=== PATIENT | male | born 1955 | race Caucasian/White ===

== ENCOUNTER 2019-07-21 05:43 | Emergency (ER) | payer OTHER, SELFPAY ==
[2019-07-21 05:48] VITALS: BP 159/81; PULSE 88; RESP 20; TEMP 36.4; O2SAT 96
--- NOTE | 2019-07-21 05:55 | W.ED.GENAD ---
Discharge Plan Disposition Patient Disposition: HOME Condition: Good Discharge Details Chief Complaint: FlankPain Clinical Impression: Left lumbar pain Primary Care Provider: Shailesh Lincoln ED Provider: Holden Salazar [place] Meds and New Rx's Prescriptions: New lidocaine 5 % adhesive patch,medicated 1 patch TP DAILY Qty: 15 RF: 0 Continued All Day Allergy (cetirizine) 10 mg capsule 10 mg PO DAILY RF: 0 aspirin 325 MG tablet 325 mg PO DAILY RF: 0 sildenafil [Viagra] 100 MG tablet 0.5 - 1 tab PO As directed Qty: 2 RF: 6 omeprazole 20 MG capsule,delayed release(DR/EC) 20 mg PO DAILY Qty: 90 RF: 4 lisinopril 10 mg Tablet PO DAILY RF: 0 Discharge Instructions Additional Instructions: Laboratory studies and CT scan do not show anything acutely wrong. Pain is likely muscular in nature. You may use ibuprofen or acetaminophen as needed. Heat and gentle stretching will likely help. Lidocaine patches as directed. Follow-up with primary care next week if continued problems. Return to ED if increased pain, bladder or bowel dysfunction, numbness, weakness, fever, abdomen pain. Stand Alone Forms: Work Release Referrals: [facility] [Outside] Shailesh Lincoln MD [Primary Care Provider] - Medical Decision Making Patient presenting with worsening of left mid lumbar back pain. Doubt that this is kidney stone related though he reports history of same. Suspect more muscular in nature. Doubt abdominal process but very large abdomen and difficult to evaluate. There is no midline back pain no neurologic symptomatology. IV had been established by nursing. CBC and BMP sent. Urinalysis obtained. Stone study ordered. Toradol given for pain. Toradol did help with the patient's pain. Urine is negative. CBC and BMP are fine. CT scan does reveal bilateral kidney stones with in the kidney itself but no evidence of hydronephrosis or stones within the ureters. He has some diverticulosis but no evidence of diverticulitis. Has degenerative change of the spine. At this point I suspect the pain is muscular in nature. He may use ibuprofen or acetaminophen as needed. Will apply Lidoderm patch now and give prescription for same. Refer to primary care for follow-up next week. Return to ED for worsening pain, bladder or bowel dysfunction, numbness, weakness, fever, abdominal pain. Lab Data Lab results reviewed: Yes I reviewed the patient's lab results. HPI General Mode of arrival: ambulatory. Date/Time Provider Initiated Documentation: 07/21/19 05:52. Limitations to Documentation: no limitations. Information obtained by: patient and RN notes reviewed. HPI Narrative: Patient presents to ED with complaint of left flank and back pain that he has had for months but much worse this morning. It has been present for some time but not severe. This morning he rates it an 8 out of 10. It does not radiate anywhere. It does get worse to some degree with movement but not when he tries to push on the area. He does not have abdominal pain, nausea, vomiting or diarrhea. He has no urinary symptoms. He has no chest pain or shortness of breath. There is no radiation of pain down his leg, numbness, weakness, bladder or bowel dysfunction or problems. Related Data Home Medications Medication Instructions Recorded Confirmed aspirin 325 mg PO DAILY tab-cap 10/18/12 07/21/19 sildenafil [Viagra] 0.5 - 1 tab PO As directed #2 09/14/15 07/21/19 tab-cap omeprazole 20 mg PO DAILY #90 tab-cap 10/01/17 07/21/19 cetirizine 10 mg capsule 10 mg PO DAILY cap 03/29/19 07/21/19 lidocaine 1 patch TP DAILY #15 each 07/21/19 lisinopril mg PO DAILY 07/21/19 Previous Rx's Medication Instructions Recorded omeprazole 20 mg PO DAILY #90 tab-cap 10/01/17 lidocaine 1 patch TP DAILY #15 each 07/21/19 Allergies Allergy/AdvReac Type Severity Reaction Status Date / Time No Known Allergies Allergy Unverified 07/21/19 05:50 General Stated Complaint: FlankPain HUNG: 3 Review of Systems Narrative: As documented in HPI otherwise negative as below. Const: no fever, chills, weakness Resp: no cough, SOB, pleuritic pain CV: no CP, diaphoresis, edema, syncope GI: no abdominal pain, nausea, vomiting, diarrhea Neuro: no headache, numbness, focal weakness, confusion [facility] Medical History Asthma (Chronic) Coronary artery disease (Chronic) GERD (gastroesophageal reflux disease) (Chronic) Hypertension (Chronic) Obesity (Chronic 09/29/07) Surgical History S/P cholecystectomy (Chronic) S/P hernia repair (Chronic) Family History Mother Neoplasm STOMACH Father Diabetes Essential hypertension Sister No problems noted. Sister No problems noted. Brother No problems noted. Grandfather No problems noted. Grandfather No problems noted. Grandmother No problems noted. Grandmother No problems noted. Son No problems noted. Social History Smoking/Tobacco Use Status: Former Tobacco Use Quit Date: 08/03/74 Alcohol Intake: current Alcohol Intake frequency: a few times a month Drug use: Never Substance use type: does not use Do you feel safe at home: Yes Do you feel safe in your relationship?: Yes Exam Narrative Exam Narrative: Vitals: Afebrile. Elevated blood pressure but otherwise normal vitals and room air pulse ox. Const: Morbidly obese male in NAD. HEENT: NC/AT. Normal facial exam. Eyes: Normal conjunctiva and sclera. Neck: Supple. Trachea midline. Lungs: Normal respiratory effort. GI: Large soft belly without tenderness. Back: No CVAT. No pain with palpation. Some pain in the left mid lumbar area with twisting/moving. No midline pain. Neuro: A+O x 3. Normal speech and mentation. Normal gait. No gross motor or sensory deficits noted. Skin: Warm and dry without rash. Course Vital Signs Vital signs: Vital Signs Temperature 97.6 F 07/21/19 05:48 Pulse 88 07/21/19 05:48 Respiratory Rate 20 07/21/19 05:48 Blood Pressure 159/81 H 07/21/19 05:48 Pulse Oximetry 96 07/21/19 05:48 Temperature 97.6 F 07/21/19 05:48 Pulse 88 07/21/19 05:48 Respiratory Rate 20 07/21/19 05:48 Respiratory Effort Non-Labored 07/21/19 05:52 Blood Pressure 159/81 H 07/21/19 05:48 Blood Pressure Position Sitting 07/21/19 05:48 Pulse Oximetry 96 07/21/19 05:48 Oxygen Delivery Method Room Air 07/21/19 05:48 Oxygen Flow Rate 0 07/21/19 05:48 Pain Level 7 07/21/19 05:52
[2019-07-21 06:06] LABS: Bilirubin Negative (Negative); Blood Negative (Negative); Clarity Clear (Clear); Glucose Negative (Negative); Ketones Negative (Negative); Leukocyte Esterase Negative (Negative); Nitrite Negative (Negative); Urobilinogen 0.2 EU/dL (Up TO 0.2)
[2019-07-21] MEDS: Ketorolac 30 MG/ML VIAL 15 MG IVP (06:10)
[2019-07-21 06:20] LABS: Abs Immature Grans 0.02 k/cumm (0.0-0.09); Absolute Basophil Count 0.04 k/cumm (0.0-0.2); Absolute Eosinophil Count 0.29 k/cumm (0.0-0.7); Absolute Lymphocyte Count 1.25 k/cumm (1.2-3.4); Absolute Monocyte Count 0.94 k/cumm (0.11-0.7); Absolute Neutrophil Count 4.47 k/cumm (1.2-6.7); Basophils % 0.6; Eosinophils % 4.1; HCT 47.2 % (40.0-50.0); HGB 15.3 g/dL (13.5-17.5); Immature Grans % 0.3; Lymphocytes % 17.8; Mean Corp. HGB Concentration 32.4 g/dL (32.0-36.0); Mean Corpuscular Hemoglobin 26.8 pg (27.0-33.0); Mean Corpuscular Volume 82.7 fL (80-95); Mean Platelet Volume 11.6 fL (8.0-11.0); Monocytes % 13.4; Neutrophils % 63.8; Platelet Count 234 x1000/uL (130-400); RBC 5.71 m/cumm (4.50-6.00); RBC Distribution Width 16.4 % (11.8-14.1); White Blood Cell Count 7.01 k/cumm (4.4-10.8)
[2019-07-21 06:27] LABS: Anion Gap 9.2 mmol/L (3-11); BUN 21 mg/dL (7-18); CO2 24.8 mmol/L (21.0-32.0); Calcium 8.4 mg/dL (8.5-10.1); Chloride 105 mmol/L (98-107); Glucose 140 mg/dL (74-106); Potassium 4.2 mmol/L (3.5-5.1); Sodium 139 mmol/L (136-145)
--- NOTE | 2019-07-21 06:28 | DI.CT_ITS ---
EXAM: CT RENAL COLIC WO CLINICAL HISTORY: left flank/back pain TECHNIQUE: Noncontrast CT examination of the abdomen and pelvis was performed. COMPARISON: RENAL COLIC WO CONTRAST from 12/22/2010 FINDINGS: Images obtained through the lung bases are unremarkable. Visualized portions of liver and spleen a re unremarkable. Prior cholecystectomy noted, no biliary dilatation. Unremarkable noncontrast appea lita of the pancreas. Abdominal aorta is of normal diameter. No abdominal or pelvic adenopathy. Umbilical hernia noted with mildly increased attenuation in adjacent intraperitoneal fat, no change f rom CT of 2010. No focal bowel pathology. Normal appearance of the appendix. No diverticulitis. Adrenals appear normal bilaterally. There are multiple tiny bilateral renal calculi. No evidence of urinary tract obstruction, no ureter al calcification. Urinary bladder is essentially empty. IMPRESSION: Bilateral nephrolithiasis without evidence of urinary tract obstruction. No ureteral calculi identif ied.
[2019-07-21] MEDS: Normal Saline Flush 10 ML SYR IVP (06:51)
--- NOTE | 2019-07-21 07:43 | DI.VRAD_ITS ---
PROCEDURE INFORMATION: Exam: CT Abdomen And Pelvis Without Contrast Exam date and time: 07/21/2019 6:22 AM Age: 63 years old Clinical indication: Abdominal pain; Flank; Left; Prior surgery; Surgery date: 6+ months; Surgery type: Inguinal hernia repair TECHNIQUE: Imaging protocol: Computed tomography of the abdomen and pelvis without contrast. Radiation optimization: All CT scans at this facility use at least one of these dose optimization techniques: automated exposure control; mA and/or kV adjustment per patient size (includes targeted exams where dose is matched to clinical indication); or iterative reconstruction. COMPARISON: CR LEFT HIP COMPLETE \T\ AP PELVIS 08/17/2015 6:43 AM FINDINGS: Lungs: Lung bases are clear. Liver: No enlargement or mass. Gallbladder and bile ducts: Surgical clips from prior cholecystectomy. Pancreas: No enlargement. No mass. No ductal dilatation. Spleen: Normal size. No mass. Adrenals: No mass. No enlargement. No hemorrhage. Kidneys and ureters: Bilateral nephrolithiasis. No hydronephrosis. No hydroureter or ureterolithiasis. Stomach and bowel: Moderate diverticulosis distal descending and sigmoid colon without acute diverticulitis. Mild constipation. No colitis. Small bowel unremarkable without mechanical obstruction. No wall thickening or pneumatosis. Appendix: Not confidently identified. No right lower quadrant inflammation. Intraperitoneal space: Unremarkable. No free air. No significant fluid collection. Vasculature: Clip aorta normal Aortic atherosclerotic calcification. Lymph nodes: No significant lymphadenopathy demonstrated. Bladder: Decompressed without wall thickening, mass or calculus. Reproductive: Prostate is enlarged. Calcification within the prostate. Bones/joints: Moderate degenerative changes noted throughout the spine. Grade 1 spondylolisthesis L5 on S1 secondary to degenerative facet disease with spondylosis on the left. Lumbarized first sacral segment with rudimentary S1-2 disc space. No acute fracture. Soft tissues: Small fat containing elena-umbilical hernia with minimal adjacent infiltration. No associated bowel. No obstruction or incarceration. IMPRESSION: 1. No acute findings within the abdomen or pelvis. 2. Nonobstructive bilateral nephrolithiasis. No hydroureteronephrosis or ureterolithiasis on either side. 3. Moderate diverticulosis without acute diverticulitis. Mild constipation. No colitis. 4. Additional nonemergent findings as described above. Dictated and Authenticated by: Evangelista Hammond MD. Ordering:SANTOS Hatch MD
[2019-07-21] MEDS: Lidocaine 5% Patch 1 PATCH TP (07:52)
[2019-07-21 07:54] VITALS: BP 127/76; PULSE 85; RESP 15; TEMP 36.8; O2SAT 94
[2019-07-21 07:59] VITALS: BP 127/76; PULSE 85; RESP 15; TEMP 36.8; O2SAT 94
== END 2019-07-21 07:58 | disposition home or self-care (01) ==
PROVIDERS: Emergency Provider Emergency Medicine; PCP Family Medicine
DX: M54.5 Low back pain (principal); N20.0 Calculus of kidney; I10 Essential (primary) hypertension; Z87.442 Personal history of urinary calculi
CPT/HCPCS: 36415; 80048; 96374; 99284; 74176; 81003; 85025; J1885

== ENCOUNTER 2023-06-19 03:30 | Outpatient (CLI) | payer MEDICARE, SELFPAY ==
[2023-06-19] MEDS: Inhaler, Assist Device 1 EACH MC (09:16)
[2023-06-19] MEDS: Levalbuterol HFA 15 GM INH 4 PUFF IH (09:16)
--- NOTE | 2023-06-23 07:36 | W.PFT ---
Date of service: 06/19/23 Time of Service: 07:59 Pulmonary Function Test Result Indications: Asthma Interpretation Spirometry: There is no airflow limitation. There is no significant bronchodilator response. There is a low FVC. Lung Volumes: Normal lung volumes Diffusion Capacity: Normal diffusion Airway Pressure: Normal airways resistance Impression Normal pulmonary function testing. The low FVC is likely pseudo-restriction due to obesity. Clinical Correlation therefore is recommended.
== END 2023-06-19 03:31 | disposition home or self-care (01) ==
LOC: RT 03:32
PROVIDERS: PCP Family Medicine; Visit Provider Family Medicine
DX: J45.909 Unspecified asthma, uncomplicated (principal); Z77.29 Contact with and (suspected) exposure to other hazardous substances
CPT/HCPCS: 94060; 94726; 94729

== ENCOUNTER 2023-07-02 01:58 | Outpatient (CLI) | payer MEDICARE, SELFPAY ==
[2023-07-02 12:40] LABS: ALT 29 U/L (16-63); AST 22 U/L (15-37); Albumin 3.1 g/dL (3.4-5.0); Alkaline Phosphatase 112 U/L (46-116); Anion Gap 8.9 mmol/L (3-11); BUN 11 mg/dL (7-18); Bilirubin, Total 0.3 mg/dL (0.2-1.0); CO2 26.1 mmol/L (21.0-32.0); CREATININE 1.2 mg/dL (0.70-1.30); Calcium 8.6 mg/dL (8.5-10.1); Calculated LDL 57 mg/dL (<100); Chloride 105 mmol/L (98-107); Cholesterol 118 mg/dL (<200); Estimated GFR 65.46 (mL/min/1.73m2); Glucose 148 mg/dL (74-106); HDL Cholesterol 48 mg/dL (40-60); Potassium 4.1 mmol/L (3.5-5.1); Sodium 140 mmol/L (136-145); Total Protein 7.6 g/dL (6.4-8.2); Triglyceride 65 mg/dL (<150)
[2023-07-02 13:01] LABS: COMMENT (LAB VIEW ONLY) 199.93 mg/dL; Microalb ug/mg Crea 70.4 ug/mg Cr
[2023-07-02 17:27] LABS: PSA, Screening 0.8 ng/mL (<=4.5)
== END 2023-07-02 01:59 | disposition home or self-care (01) ==
LOC: LOS 01:58
PROVIDERS: PCP Family Medicine; Visit Provider Family Medicine
DX: E11.9 Type 2 diabetes mellitus without complications (principal); Z12.5 Encounter for screening for malignant neoplasm of prostate
CPT/HCPCS: 36415; 80053; 80061; 84153; 82043; 82570

== ENCOUNTER 2024-09-22 08:16 | Emergency (ER) | payer MEDICARE, SELFPAY ==
[2024-09-22] VITALS (53 sets, daily range): BP systolic 115–164; BP diastolic 51–75; PULSE 63–89; RESP 10–24; TEMP 36.4; O2SAT 88–96
--- NOTE | 2024-09-22 08:15 | RT.EKG_ITS ---
APPROVED REPORT Exam: Resting ECG Reason for Exam: chest pain Patient Location: E HR:77 bpm ECG Measurements Heart Rate 77 AXIS WV 192 P 62 QRSd 95 QRS -5 QT 402 T 29 QTc 456 Conclusion Sinus rhythm. 77 NORMAL AXIS NO STEMI
--- NOTE | 2024-09-22 08:30 | DI.RAD_ITS ---
Exam(s) XR CHEST 2V PA LATERAL EXAM: XR CHEST 2V PA LATERAL CLINICAL HISTORY: Chest pain TECHNIQUE: 2D digital imaging was performed of the chest. Two images were obtained. PA and lateral views were obtained. COMPARISON: No exams were available for comparison FINDINGS: MEDIASTINUM: Normal. HEART: Normal. PULMONARY VASCULATURE: Normal. LUNGS: Clear. PLEURAL SPACE: No pleural effusion or pneumothorax. BONE:Within normal limits for the patient's age. OTHER FINDINGS:Normal. IMPRESSION: No acute pulmonary findings. DATA REPOSITORY: RADIATION DOSE DELIVERED:
--- NOTE | 2024-09-22 08:47 | ED.GENADUL_ITS ---
Discharge Plan Disposition Patient Disposition: Home Condition: Stable Discharge Details Clinical Impression: Chest pain Primary Care Provider: Ceci Sorensen ED Provider: Mamie Saleh Home Meds and New Rx's Prescriptions: No Action lisinopril 20 mg tablet 20 mg PO DAILY Rx Instructions: [facility] rosuvastatin 10 mg tablet 10 mg PO DAILY Rx Instructions: [facility] cyclobenzaprine 10 mg tablet 10 mg PO HS PRN (Reason: muscle spasm) potassium citrate 10 mEq (1,080 mg) tablet extended release 10 meq PO TID All Day Allergy (cetirizine) 10 mg capsule 10 mg PO DAILY metoprolol tartrate 25 mg tablet 25 mg PO DAILY fluticasone furoate 50 mcg/actuation blister with device inhalation BID Patient Comments: [facility] carboxymethylcellulose sodium [Refresh Tears] 0.5 % drops 1 drp ophthalmic (eye) 4-6XD PRN dofetilide 500 mcg capsule 500 mcg PO BID albuterol sulfate 90 mcg/actuation HFA aerosol inhaler 2 puff inhalation QID PRN Eliquis 5 mg tablet 5 mg PO BID sildenafil [Viagra] 100 MG tablet 0.5 - 1 tab PO As directed Qty: 2 Rx Instructions: Take 2 hours before intercourse omeprazole 20 MG capsule,delayed release(DR/EC) 20 mg PO DAILY Qty: 90 4RF lidocaine 5 % adhesive patch,medicated 1 patch TP DAILY Qty: 15 0RF Rx Instructions: leave on most painful area for up to 12 hrs Discharge Instructions Instructions: Chest Pain, Adult ED Additional Instructions: Emergency department workup today does not reveal an acute etiology of your ches t pain. Blood work was very reassuring. Given your other risk factors, please follow-up with your primary doctor for reevaluation of any ongoing symptoms or return to the emergency department with any additional or worsening concerns HPI General Date/Time Provider Initiated Documentation: 09/22/24 08:23 . Limitations to Documentation: no limitations . Information obtained by: patient . HPI Narrative: 69-year-old gentleman with past medical history of hypertension obesity A-fib on Eliquis, prediabetic presents for evaluation of chest pain. He reports that for the last 3 days he has been having some intermittent chest pain. He reports that the pain was worse at nighttime. He has had some mild shortness of breath but no cough. There does not appear to be worsening of his symptoms with exertion. He does report some positional change with his chest pain. He states that it was worse 2 nights ago but seems to have improved a little bit and now rates it 3 out of 10. Related Data Home Medications ?Medication ?Instructions ?Recorded ?Confirmed sildenafil 100 mg tablet (Viagra) 0.5 - 1 tab PO As directed #2 09/14/15 11/02/23 tab-caps omeprazole 20 mg capsule,delayed 20 mg PO DAILY #90 tab-caps 10/01/17 11/02/23 release cetirizine 10 mg capsule (All Day 10 mg PO DAILY 03/29/19 11/02/23 Allergy (cetirizine)) lidocaine 5 % topical patch 1 patch topical DAILY #15 ea 07/21/19 11/02/23 lisinopril 20 mg tablet 20 mg PO DAILY 10/04/21 11/02/23 rosuvastatin 10 mg tablet 10 mg PO DAILY 10/04/21 11/02/23 cyclobenzaprine 10 mg tablet 10 mg PO HS PRN muscle spasm 11/06/21 11/02/23 potassium citrate 10 mEq (1,080 10 meq PO TID 11/06/21 11/02/23 mg) tablet,extended release albuterol sulfate 90 mcg/actuation 2 puff inhalation QID PRN 02/04/23 11/02/23 aerosol inhaler apixaban 5 mg tablet (Eliquis) 5 mg PO BID 02/04/23 11/02/23 carboxymethylcellulose sodium 0.5 1 drp ophthalmic (eye) 4-6XD PRN 06/17/23 11/02/23 % eye drops (Refresh Tears) dofetilide 500 mcg capsule 500 mcg PO BID 06/17/23 11/02/23 fluticasone furoate 50 inhalation BID 06/17/23 11/02/23 mcg/actuation blister powder for inhalation metoprolol tartrate 25 mg tablet 25 mg PO DAILY 06/17/23 11/02/23 Previous Rx's ?Medication ?Instructions ?Recorded omeprazole 20 mg capsule,delayed 20 mg PO DAILY #90 tab-caps 10/01/17 release lidocaine 5 % topical patch 1 patch topical DAILY #15 ea 07/21/19 Allergies Allergy/AdvReac Type Severity Reaction Status Date / Time No Known Allergies Allergy Unverified 10/28/23 13:57 General Stated Complaint: Chest Pain HUNG: 3 Exam Narrative Exam Narrative: Review of Systems: All systems reviewed & are unremarkable except as noted in HPI and below Obese NCAT RRR no murmur, Unlabored respiratory effort no increased respiratory effort or hypoxia, no crackles noted at bases, Nondistended abdomen Extremities w/o edema no focal neurologic deficits Course Vital Signs Vital signs: Vital Signs Pulse 76 09/22/24 08:19 Respiratory Rate 18 09/22/24 08:19 Blood Pressure 164/63 H 09/22/24 08:19 Pulse Oximetry 96 09/22/24 08:19 Temperature 36.4 C 09/22/24 08:29 Pulse 76 09/22/24 08:19 Respiratory Rate 18 09/22/24 08:19 Blood Pressure 164/63 H 09/22/24 08:19 Pulse Oximetry 96 09/22/24 08:19 Oxygen Delivery Method Room Air 09/22/24 08:19 Oxygen Flow Rate 0 09/22/24 08:19 Pain Level 3 09/22/24 08:19 Medical Decision Making Emergent evaluation of chest pain. Patient has multiple risk factors for ACS. Initial EKG independently interpreted: Sinus 77 normal axis no acute ischemic changes. Pain has been ongoing for the last 3 days. Although I have a low suspicion for an acute coronary syndrome given the history, he has multiple risk factors. Other differential includes pneumonia, URI, musculoskeletal pain . . will continue cardiac monitoring, get lab work including serial cardiac biomarkers. will give aspirin and nitroglycerin for chest pain relief. Lab work reviewed, there is no leukocytosis or anemia. There is no significant electrolyte derangement. Renal function is at baseline. High-sensitivity troponin is undetectable. Given the duration of his symptoms this makes ACS highly unlikely. BNP is not elevated and chest x-ray does not demonstrate evidence of pneumonia, consolidation, pulmonary edema. At this time the patient's symptoms have resolved. No negation for further emergent workup. Recommend close follow-up with PCP given his multiple medical comorbidities, and strict return precautions were advised. Quality:SDOH Health Related Social Needs: No Data to Display PFSH All Active Problems (Updated 09/22/24 @ 09:44 by Mamie Saleh MD) Chest pain (Acute) Onychomycosis (Acute) Exposure to toxic substance (Chronic) [employer] exposure Type 2 diabetes mellitus without complication, with no history of insulin use (Acute) Paroxysmal atrial fibrillation (Chronic) managed by [facility] clinic - rate control and anticoagulation; had attempt at cardioversion, unsuccessful. BMI 50.0-59.9, adult (Chronic) Morbid obesity with BMI of 50.0-59.9, adult (Chronic) Osteoarthritis of left knee (Chronic) Asthma (Chronic) Essential hypertension (Chronic 09/01/13) Sensory hearing loss, bilateral (Chronic 08/15/14) Medical History (Updated 09/22/24 @ 09:44 by Mamie Saleh MD) Hx of heat stroke while in [place] [employer] History of nephrolithiasis Managed by Dr. Rose, Potassium Citrate GERD (gastroesophageal reflux disease) Surgical History (Updated 11/05/21 @ 11:42 by Ceci Sorensen MD) S/P hernia repair S/P cholecystectomy Family History (Updated 06/18/23 @ 11:48 by Cecelia Jacobs) Mother Neoplasm STOMACH Colon cancer Father Diabetes Essential hypertension Dementia Social History (Updated 06/18/23 @ 11:47 by Cecelia Jacobs) Smoking/Tobacco Use Status: Former Tobacco Use Quit Date: 08/03/74 Pack-years: 3 Tobacco: How many years used: 3 Smoking risk assessment performed?: Yes Alcohol Intake: former Year quit: 2021 Drug use: Never Substance use type: does not use Adopted: No Caregiver/Support person: No Foster care: No Household members: spouse Housing: house Number of Children: 1 number of grandchildren: 4 Communication Needs: Hard of Hearing Education Level: high school 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 Pets and animals: Yes Pets and animals: cat(s) Sexually active: Yes Do you think of yourself as: straight/heterosexual Current gender identity: male What is your relationship status?: How often do you talk on the phone with friends or family?: once per week How often do you get together with friends or relatives?: once per week Do you belong to any clubs or organized social groups?: no Panel score (0-1 are the most socially isolated patients): 1 What type of physical activity do you participate in: none Yoli/Rastafarian: Non buddhist Special yoli needs: No Agree to transfusion: Yes Seatbelt use: always Drive intox or ride w/intox six horse hitch driver: No Working smoke detector in home: Yes Carbon monox detector in home: Yes Firearms in home: Yes Firearms unloaded and locked: Yes Do you feel safe at home: Yes Do you feel safe in your relationship?: Yes Victim of physical abuse: No Victim of emotional abuse: No Victim of sexual abuse: No Would you like helpful sources: No Additional Social history: Enjoys camping
[2024-09-22 08:54] LABS: Abs Immature Grans 0.04 10^3/uL (0.0-0.06); Absolute Basophil Count 0.06 10^3/uL (0.0-0.2); Absolute Eosinophil Count 0.22 10^3/uL (0.0-0.7); Absolute Lymphocyte Count 1.35 10^3/uL (1.2-3.4); Absolute Monocyte Count 0.94 10^3/uL (0.1-0.8); Absolute Neutrophil Count 5.29 10^3/uL (1.2-6.7); Basophils % 0.8 %; Eosinophils % 2.8 %; HGB 15.1 g/dL (13.5-17.5); Immature Grans % 0.5 %; Lymphocytes % 17.1 %; MCH 27.5 pg (27.0-33.0); MCHC 32.1 % (32.0-36.0); MCV 86 fL (80-95); MPV 11.4 fL (8.0-11.0); Monocytes % 11.9 %; Neutrophils % 66.9 %; Platelet Count 191 10^3/uL (130-400); RBC 5.49 10^6/uL (4.36-5.78); RDW 15.8 % (11.8-14.1)
[2024-09-22] MEDS: Aspirin 81 MG CHEW 324 MG CH (08:54)
[2024-09-22 09:26] LABS: ALT 24 U/L (16-63); AST 17 U/L (15-37); Albumin 3.1 g/dL (3.4-5.0); Alkaline Phosphatase 110 U/L (46-116); Anion Gap 7.5 mmol/L (3-11); BUN 15 mg/dL (7-18); Bilirubin, Total 0.39 mg/dL (0.2-1.0); CO2 26.5 mmol/L (21.0-32.0); CREATININE 1.4 mg/dL (0.70-1.30); Calcium 8.6 mg/dL (8.5-10.1); Chloride 108 mmol/L (98-107); Estimated GFR 53.74 (mL/min/1.73m2); Glucose 143 mg/dL (74-106); Lipase 36 U/L (<78); NT-proBNP 32 pg/mL (<300); Potassium 3.9 mmol/L (3.5-5.1); Sodium 142 mmol/L (136-145); Total Protein 7.5 g/dL (6.4-8.2); Troponin I < 4 ng/L (<or=76)
== END 2024-09-22 09:55 | disposition home or self-care (01) ==
PROVIDERS: Emergency Provider Emergency Medicine; PCP Family Medicine
DX: R07.9 Chest pain, unspecified (principal); I10 Essential (primary) hypertension; E11.9 Type 2 diabetes mellitus without complications; I48.0 Paroxysmal atrial fibrillation; Z79.01 Long term (current) use of anticoagulants; Z87.891 Personal history of nicotine dependence
CPT/HCPCS: 36415; 80053; 83690; 93005; 99285; 71046; 83880; 84484; 85025; 93010; 99284